=== PATIENT | male | born 1955 | race Caucasian/White ===

== ENCOUNTER 2019-07-09 10:10 | Day surgery (SDC) | payer BC ==
[2019-07-07 10:53] VITALS: BMI 21.7
[~2019-07-09 10:10] MED LIST: LACTATED RINGERS 1,000 ML IV SCH; LIDOCAINE 1% (10MG/ML) FOR IV START INTRADERMA PRN
[2019-07-09 10:34] VITALS: TEMP 98.3
[2019-07-09] MEDS ORDERED: PROPOFOL 10 MG/ML 20 ML VIAL IV ONE (10:44)
[2019-07-09] MEDS ORDERED: LIDOCAINE 1% INJ 10MG/ML (20 ML MDV) ONE (10:44)
--- NOTE | 2019-07-09 11:14 | P.PCN ---
Date of Procedure: 07/09/19 Procedure(s) Performed: BRIEF HISTORY: Patient is a 63-year-old pleasant white male scheduled for an elective colonoscopy as a part of evaluation of change in bowel habits with intermittent rectal bleeding for the last several months duration. No prior history of colonoscopy. PROCEDURE PERFORMED: Colonoscopy with biopsy and snare polypectomy. PREOPERATIVE DIAGNOSIS: Change in bowel habits and rectal bleeding. IV sedation per Anesthesia. PROCEDURE: After informed consent was obtained, the patient, was brought into the endoscopy unit. IV sedation was administered by Anesthesia under continuous monitoring. Digital rectal examination was normal. Initially the Olympus CF-160 flexible video colonoscope was then inserted in the rectum, and immediately there was a ulcerated proximal rectal mass identified with the luminal narrowing. The scope could not be advanced. The scope was removed and a. Colonoscope was then introduced into the rectum and with gentle manipulation it was gradually gradually advanced into the cecum without any difficulty. Careful examination was performed as the scope was gradually being withdrawn. Ileocecal valve and the appendiceal orifice were visualized and appeared normal. Prep was excellent. Mucosa of the cecum, ascending colon normal. The transverse colon there was a 5 mm polyp that was removed by snare polypectomy. Rest of the, transverse colon, descending colon, sigmoid colon, appeared normal. In the proximal rectum there was a circumferential ulcerated mass with luminal narrowing exiting from 9-40 cm from the anal verge and multiple biopsies were done from this area. The distal rectum appeared normal. The patient tolerated the procedure well. IMPRESSION: Circumferential ulcerated proximal rectal mass extending from 9-14 cm from the anal verge status post multiple biopsies 5 mm transverse colon polyp status post polypectomy RECOMMENDATIONS: Findings of this examination were discussed with the patient as well as his family.. He was advised to follow with the biopsies are loose. He'll be scheduled for a CT of the abdomen and pelvis be seen in office next week.
[2019-07-09 11:44] VITALS: RESP 18
[2019-07-09] MEDS ORDERED: MIDAZOLAM 2 MG/2 ML VIAL IVP ONE ×2 (12:21→12:30)
[2019-07-09 12:47] VITALS: BP 153/89; PULSE 51
== END 2019-07-09 12:59 | disposition home or self-care (01) ==
LOC: ORWHC2ENDO 10:10
PROVIDERS: ATTEND Internal Medicine Gastroenterology
DX: C20 Malignant neoplasm of rectum (principal); D12.3 Benign neoplasm of transverse colon; K62.6 Ulcer of anus and rectum; Z87.442 Personal history of urinary calculi
CPT/HCPCS: 88305; 45380; 45385; J2250; J2001; J2704

== ENCOUNTER → 2019-07-12 | Outpatient (CLI) | payer BC ==
--- NOTE | 2019-07-12 19:15 | CT ---
EXAMINATION TYPE: CT abdomen pelvis w con DATE OF EXAM: 07/12/2019 COMPARISON: CT abdomen and pelvis January 16, 2010 HISTORY: Abdominal and pelvic pain, rectal bleeding and diarrhea x2 months. CT DLP: 998 mGycm, Automated Exposure Control for Dose Reduction was Utilized. CONTRAST: CT scan of the abdomen and pelvis is performed with oral and with IV Contrast, patient injected with 100ml mL of Isovue 300. FINDINGS: LUNG BASES: Some increased interstitial prominence bilaterally suspect product of new chronic interst itial [id number]. LIVER/GB: Suspicious new heterogeneous hypodense masses throughout the liver are now present. For ref erence 4.3 cm lesion on long axis right hepatic dome image 13. 2 adjacent lesions left hepatic lobe s een, largest left lateral aspect measures 4.1 cm long axis axial image 17. Interval cholecystectomy c hanges noted. Posterior-inferior right hepatic lobe lesion measures 3.6 cm long axis axial image 32.L esion anterior inferior right hepatic lobe measures 3.8 cm long axis axial image 39. PANCREAS: No significant abnormality is seen. SPLEEN: No significant abnormality is seen. ADRENALS: No significant abnormality is seen. KIDNEYS: There are approximately 10 renal calculi throughout the left kidney measuring up to 9 mm leno g axis axial image 35. There are approximately 2-3 small nonobstructing right renal calculi largest u pper pole level measures 5 to 6 mm long axis coronal image 64. There is symmetric cortical medullary uptake and excretion from both kidneys with scattered simple-appearing thin-walled cysts bilaterally but no hydronephrosis. There is focal cortical scarring laterally mid pole level left kidney coronal image 55. BOWEL: Oral contrast did not reach level terminal ileum making evaluation of bowel slightly suboptima l. Mild prominence of contrast and debris filled stomach. No suspicious small or large bowel dilatati on. There is suspicious moderate to severe concentric mass or neoplasm in the distal right colon just jonnathan rt of the hepatic flexure coronal image 60 and corresponding axial image 49 corresponding to sagittal image 18. Normal-appearing appendix is seen from posterior aspect of cecum in the right upper pelvis inferior to this. There are additional areas of mild to moderate wall thickening in the sigmoid rectal colon with mild to moderate fat stranding of the presacral fat. Findings slightly more suspicious in the distal sigmo id colon and rectum. Suspicious subcentimeter adjacent lymph nodes in the perirectal fat bilaterally. Focal moderate narrowing near junction left and sigmoid colon left upper pelvis coronal image 35 is n onspecific. Favor product of poor distention. PROSTATE/SEMINAL VESICLES: Mildly enlarged bulging on bladder base with central calcifications. Findi ngs consistent with BPH. LYMPH NODES: No greater than 1cm abdominal or pelvic lymph nodes are appreciated. Suspicious subcent imeter perirectal lymph nodes noted. OSSEOUS STRUCTURES: Mild multilevel spurring in the spine. Mild to moderate axial joint space loss in both hips with mild acetabular spurring. Some spurring and narrowing of the sacroiliac joints greate r on the left. OTHER: Fairly moderate to large sized right scrotal fluid collection or hydrocele coronal image 38 ca using mass effect on the right testicle displaced inferiorly. IMPRESSION: There are findings consistent with high grade metastatic colon cancer as there are approx imately 7-8 hepatic metastatic lesions, site of primary colonic neoplasm just past sigmoid rectal lizzy ction involving proximal to mid rectum. Second area of primary colonic neoplasm in the distal right c olon cannot be excluded as detailed above. Additional areas of mild colitis cannot be excluded versus product of poor distention.
== END | disposition home or self-care (01) ==
LOC: RADCTMAIN 15:18
PROVIDERS: ATTEND Internal Medicine Gastroenterology
DX: C19 Malignant neoplasm of rectosigmoid junction (principal); C78.7 Secondary malignant neoplasm of liver and intrahepatic bile duct; K52.9 Noninfective gastroenteritis and colitis, unspecified
CPT/HCPCS: 74177; Q9967

== ENCOUNTER → 2019-07-24 | Outpatient (CLI) | payer BC ==
--- NOTE | 2019-07-27 06:49 | PE ---
EXAMINATION TYPE: PET CT fusion skull to thigh DATE OF EXAM: 07/24/2019 COMPARISON: CT abdomen and pelvis July 12, 2019 and older CTs. HISTORY: Rectal cancer metastatic to liver diagnosed July 18, 2019 on biopsy per patient. TECHNIQUE: Following the intravenous administration of 11.29 mCi of F-18 FDG, whole body images are performed from the skull base to the midthigh. Images are reviewed on the computer in the coronal, a xial, and sagittal planes. Reconstructed rotating images are created on independent workstation and reviewed on the computer. A noncontrast CT is performed in conjunction with the PET scan. SCAN: Initial Scan FINDINGS: SKULL BASE AND NECK: No suspicious areas of hypermetabolic uptake. CHEST, MEDIASTINUM, AND HILAR REGION: No suspicious areas of abnormal hypermetabolic uptake. ABDOMEN AND PELVIS: Normal excretion in the distended bladder. Posterior to bladder there is redemons tration of concentric mass or neoplasm with abnormal hypermetabolic uptake axial images 217 through 2 30, max SUV is 9.4 on axial image 225. No additional suspicious hypermetabolic uptake in the mid to d istal right colon at area of suspicion on recent CT. Nonspecific bilateral testicular uptake presumed nonneoplastic, possibly inflammatory. Corresponding to CT there are hypermetabolic hepatic metastatic lesions. At least 7 distinct lesions are seen. Largest right hepatic dome measures 4.5 x 4.4 cm axial image 121, max SUV is 6.78. Largest lateral segment left hepatic lobe measures 5.3 cm long axis axial image 132, max SUV is 7.04. Posteri or inferior right hepatic lobe 3.3 cm lesion long axis axial image 154 has max SUV of 5.99. No additional areas of suspicious hypermetabolic uptake. OSSEOUS STRUCTURES: No areas of suspicious hypermetabolic uptake. OTHER CT: Mild calcified plaque right carotid bulb level. Metallic plate through healed fracture left clavicle. Background of Mild underlying emphysematous change. Small degree of subareolar gynecomastia. Cholecystectomy clips. Bilateral renal calculi. Enlarged prostate consistent with BPH. Moderate right scrotal fluid collection or hydrocele. Multilevel spurring in the spine. IMPRESSION: Confirmation of known primary rectal neoplasm and hepatic metastatic disease as suspected on recent CT. No additional metastatic disease identified.
== END | disposition home or self-care (01) ==
LOC: RADPETMAIN 10:08
PROVIDERS: ATTEND Internal Medicine Hematology & Oncology
DX: C20 Malignant neoplasm of rectum (principal)
CPT/HCPCS: 78815; A9552

== ENCOUNTER 2019-08-13 06:12 | Inpatient (IN) | payer BC ==
[2019-08-12 09:06] VITALS: BMI 21.7
[~2019-08-13 06:12] MED LIST changes: +HEPARIN SODIUM,PORCINE 5,000 UNIT/ML 1 ML VIAL SQ ONE; -LACTATED RINGERS 1,000 ML IV SCH; -LIDOCAINE 1% (10MG/ML) FOR IV START INTRADERMA PRN; +metroNIDAZOLE-NS PMX 500 MG in SALINE 1 100ML.BAG IVPB ONE
[2019-08-13] MEDS ORDERED: LACTATED RINGERS 1,000 ML IV ONE ×2 (06:48→09:07)
[2019-08-13] MEDS ORDERED: DEXAMETHASONE SOD PHOS (MDV) 100 MG/10 ML VIAL IVP ONE (06:49)
[2019-08-13] MEDS ORDERED: ONDANSETRON 4 MG/2 ML VIAL IVP ONE (06:49)
[2019-08-13] MEDS ORDERED: MIDAZOLAM 2 MG/2 ML VIAL IVP ONE (07:27)
[2019-08-13] MEDS ORDERED: fentaNYL (PF) 50 MCG/ML 2 ML AMP IVP ONE (07:27)
[2019-08-13] MEDS ORDERED: GLYCOPYRROLATE 0.2 MG/ML 2 ML VIAL ONE (07:50)
[2019-08-13] MEDS ORDERED: ePHEDrine SULFATE/0.9% NACL/PF 50 MG/5 ML SYRINGE IV ONE (07:50)
[2019-08-13] MEDS ORDERED: PROPOFOL 10 MG/ML 20 ML VIAL IV ONE (07:50)
[2019-08-13] MEDS ORDERED: MIDAZOLAM 2 MG/2 ML VIAL ONE (07:50)
[2019-08-13] MEDS ORDERED: SUCCINYLCHOLINE CHLORIDE 100 MG/5 ML SYR IV ONE (07:50)
[2019-08-13] MEDS ORDERED: ROPIVACAINE 5 MG/ML 30 ML VIAL ONE (07:50)
[2019-08-13] MEDS ORDERED: ROCURONIUM BROMIDE 10 MG/ML 5 ML VIAL IV ONE (07:50)
[2019-08-13] MEDS ORDERED: fentaNYL (PF) 50 MCG/ML 2 ML AMP ONE (07:50)
[2019-08-13] MEDS ORDERED: NEOSTIGMINE 1 MG/ML 10 ML VIAL ONE (07:50)
--- NOTE | 2019-08-13 08:29 | P.ANPRN ---
Procedure Note - Anesthesia - Nerve Block Performed Bilateral Rectus Abdominis Single Time Out Performed: Yes Date of Procedure: 08/13/19 Procedure Start Time: Procedure Stop Time: Location of Patient: PreOp Indication: Acute Post-Operative Pain, Requested by Surgeon Specifically requested for management of pain by DrMarcelina: Raul Mcclain Sedation Type: Sedate with meaningful contact maintained Preparation: Sterile Prep Position: Supine Catheter: None Needle Types: [place]ajunk Needle Gauge: 20 Ultrasound used to visualize needle placement: Yes Ultrasound used to observe medication spread: Yes Injectate: 0.5% Ropivacaine (see comment for volume) (15 cc each side) Blood Aspirated: No Pain Paresthesia on Injection Noted: No Resistance on Injection: Normal Image Stored and Saved: Yes Events: Uneventful and Well Tolerated
[2019-08-13] MEDS ORDERED: ONDANSETRON 4 MG/2 ML VIAL IVP PRN (09:30)
[2019-08-13] MEDS: HYDROmorphone 0.5 MG/0.5 ML SYRINGE IVP PRN ×5 (09:30→10:38)
--- NOTE | 2019-08-13 09:36 | P.OP ---
Date of Procedure: 08/13/19 Procedure(s) Performed: PREOPERATIVE DIAGNOSIS: Rectosigmoid cancer with obstructive symptoms POSTOPERATIVE DIAGNOSIS: Same PROCEDURE: Exploratory laparotomy with loop colostomy SURGEON: Johny EBL: 20 mL ANESTHESIA: General COMPLICATIONS: None OPERATIVE PROCEDURE: Patient place in the operative table in the supine position. The patient was placed under general anesthesia. The abdomen was prepped and draped in usual sterile fashion. A vertical incision was made extending above and below the umbilicus. The fascia was divided as well. Evaluation of the abdomen revealed palpable masses within the liver as expected. The patient's tumor was present beginning just above the peritoneal reflection extending down into the deeper pelvis. This appeared bulky. This did not appear easily amenable to surgical resection. Instead it was decided to proceed with planned loop colostomy. The descending and sigmoid colon was mobilized by incising the white line of [place]. Once we had adequate mobilization to reach the skin surface a circular incision was made in the left midabdomen. Dissection through this fat and fascia took place using electrocautery. Entrance into the perineal cavity. Using a [place] drain the bowel was able to be brought up to the skin surface without difficulty. The midline fascia was then reapproximated using 2 separate double-stranded #1 PDS sutures. The subcutaneous tissues were closed using 3-0 Vicryl sutures. The skin was then closed using guerrero. Sterile dressings were then applied. The ostomy was then matured in a [place] fashion. This was performed using interrupted 3-0 Vicryl sutures. A bridge was placed and the [place] drain was removed. The bridge was sutured in place using 3-0 silk sutures. An ostomy appliance was then applied. DISPOSITION: Stable to recovery room
[2019-08-13] MEDS: KETOROLAC 30 MG/ML 1 ML VIAL IVP PRN (09:48)
[2019-08-13] MEDS ORDERED: ALVIMOPAN 12 MG CAPSULE PO ONE (10:15)
[2019-08-13] MEDS: D5-0.45% NACL WITH KCL 20MEQ/L 1,000 ML IV SCH ×2 (11:50→21:32)
[2019-08-13] MEDS: HYDROmorphone 1 MG/ML 1 ML SYRINGE IVP PRN ×3 (12:44→21:33)
[2019-08-13] MEDS ORDERED: TEMAZEPAM 15 MG CAP PO PRN (14:47)
[2019-08-13] MEDS ORDERED: ALPRAZolam 0.25 MG TAB PO PRN (14:47)
[2019-08-13] MEDS: NICOTINE 14MG/24HR PATCH TRANSDERM SCH (15:21)
[2019-08-13] MEDS: HEPARIN SODIUM,PORCINE 5,000 UNIT/ML 1 ML VIAL SQ SCH ×2 (15:54→23:41)
--- NOTE | 2019-08-13 18:59 | CONS ---
CONSULTATION DATE OF SERVICE: 08/13/2019 REASON FOR CONSULTATION: Advice regarding colon cancer and other associated multiple medical issues, requested by Dr. Mcclain. HISTORY OF PRESENT ILLNESS: This 63-year-old gentleman with a past medical history of GI bleed, history of nephrolithiasis, history of colon cancer, being followed by Dr. Jose Tompkins in the outpatient setting, underwent exploratory laparotomy as well as loop colostomy for rectosigmoid cancer with obstructive symptoms by Dr. Mcclain. There is no history of any chest pain, no history of palpitations, no history of headache, loss of consciousness, seizures, nausea, vomiting, diarrhea, fever, rigor or chills at this time. PAST MEDICAL HISTORY: History of colon cancer, GI bleed, history of nephrolithiasis. MEDICATIONS: 1. Multivitamins 1 p.o. daily. 2. Cannabinoid CBD extract 1 dose p.r.n. 3. Vitamin C 1000 mg daily. ALLERGIES: NONE. FAMILY HISTORY: No history of heart disease or strokes in the family. SOCIAL HISTORY: History of smoking 5 to 6 cigarettes per day and alcohol, a couple of drinks per day. REVIEW OF SYSTEMS: ENT: No diminished hearing. No diminished vision. CARDIOVASCULAR SYSTEM: No angina, palpitations. RESPIRATORY SYSTEM: Occasional cough. GI: As mentioned earlier. : No dysuria or retention. NERVOUS SYSTEM: No numbness, weakness. ALLERGY/IMMUNOLOGY: No asthma, hayfever. MUSCULOSKELETAL: As mentioned earlier. HEMATOLOGY/ONCOLOGY: No history of anemia. ENDOCRINE: No history of diabetes, hypothyroidism. CONSTITUTIONAL: As mentioned earlier. DERMATOLOGY: Negative. RHEUMATOLOGY: Negative. PSYCHIATRY: As mentioned earlier. PHYSICAL EXAMINATION: Patient alert and oriented x3. Pulse 54, blood pressure 143/84, respiration 16, temperature 97.5, pulse ox 99% on room air. HEENT: Conjunctivae normal. NECK: No jugular venous distention. CARDIOVASCULAR SYSTEM: S1, S2 muffled. RESPIRATORY SYSTEM: Breath sounds diminished at the bases. No rhonchi. No crackles. ABDOMEN: Soft. Status post surgery. LEGS: No edema. No swelling. NERVOUS SYSTEM: No focal deficit. LABS: CBC within normal limits. ASSESSMENT: 1. Status post exploratory laparotomy and loop colostomy for rectosigmoid cancer with obstructive symptoms. 2. History of gastrointestinal bleed. 3. History of nephrolithiasis. 4. History of cholecystectomy. 5. History of degenerative joint disease. 6. History of nicotine dependence. 7. FULL CODE. RECOMMENDATIONS AND DISCUSSION: In this 63-year-old gentleman who presented with multiple medical issues, we will monitor the patient closely, continue the current medications, continue with symptomatic treatment. Incentive spirometry. DVT prophylaxis. We will follow the patient closely with you. The patient may be asked to follow with Dr. Tompkins closely after discharge. Thank you, Dr. Mcclain, for letting us participate in the care of this patient. MMODL / IJN: [id number] /
[2019-08-14] MEDS: HYDROmorphone 1 MG/ML 1 ML SYRINGE IVP PRN ×2 (02:07→05:32)
[2019-08-14] MEDS: D5-0.45% NACL WITH KCL 20MEQ/L 1,000 ML IV SCH ×3 (03:44→19:25)
[2019-08-14] MEDS: KETOROLAC 30 MG/ML 1 ML VIAL IVP PRN ×3 (06:08→22:47)
[2019-08-14 06:30] LABS: Basophils % (A) 0 %; Eosinophils # (A) 0.1 k/uL (0-0.7); Eosinophils % (A) 1 %; HCT 39.3 % (39.0-53.0); Lymphocytes # (A) 2.4 k/uL (1.0-4.8); Lymphocytes % (A) 24 %; MCH 29.5 pg (25.0-35.0); MCV 89.5 fL (80.0-100.0); Mean Platelet Volume 6.6; Monocytes # (A) 0.6 k/uL (0-1.0); Monocytes % (A) 6 %; Neutrophils # (A) 6.7 k/uL (1.3-7.7); Neutrophils % (A) 66 %; Platelet Count 429 k/uL (150-450); RDW 13.3 % (11.5-15.5); WBC 10.1 k/uL (3.8-10.6)
[2019-08-14 06:43] LABS: ALT 75 U/L (4-49); AST 62 U/L (17-59); African American GFR (CKD) >90 (>60 ml/min/1.73 sqM); Albumin 3.3 g/dL (3.5-5.0); Alkaline Phosphatase 70 U/L (38-126); Anion Gap 4 mmol/L; Blood Urea Nitrogen 15 mg/dL (9-20); Carbon Dioxide 25 mmol/L (22-30); Chloride 105 mmol/L (98-107); Glucose 115 mg/dL (74-99); Non-African American GFR(CKD) >90 (>60 ml/min/1.73 sqM); Potassium 4.6 mmol/L (3.5-5.1); Sodium 134 mmol/L (137-145); Total Bilirubin 0.5 mg/dL (0.2-1.3); Total Protein 5.7 g/dL (6.3-8.2)
[2019-08-14] MEDS: ALVIMOPAN 12 MG CAPSULE PO SCH ×2 (08:39→19:26)
[2019-08-14] MEDS: HEPARIN SODIUM,PORCINE 5,000 UNIT/ML 1 ML VIAL SQ SCH ×3 (08:39→22:47)
[2019-08-14] MEDS: NICOTINE 14MG/24HR PATCH TRANSDERM SCH (08:39)
--- NOTE | 2019-08-14 10:23 | P.PN ---
Subjective Progress Note Date: 08/14/19 Principal diagnosis: Obstructing colon cancer Patient doing fairly well today. Pain is controlled. White blood cell count normal at 10.1. Patient afebrile. He is ambulating. No ostomy function. Young catheter removed today. Objective - Vital Signs Vital signs: Vital Signs Temp 98.0 F 08/14/19 04:43 Pulse 63 08/14/19 04:43 Resp 18 08/14/19 04:43 BP 149/78 08/14/19 04:43 Pulse Ox 96 08/14/19 04:43 Intake & Output 08/13/19 08/14/19 08/14/19 18:59 06:59 18:59 Intake Total 2860 1715 Output Total 594 1200 Balance 2266 515 Intake: IV 1450 Intake, IV Titration 750 1125 Amount D5-0.45% NaCl with KCl 750 1125 20Meq/l 1,000 ml @ 125 mls/hr IV .Q8H CARLEY Rx#: [id number] Oral 660 590 Output: Urine 574 1200 Uretheral (Young) 1200 Estimated Blood Loss 20 Other: Voiding Method Indwelling Catheter Indwelling Catheter - Exam Abdomen: Soft, nondistended, dressing clean dry, ostomy pink - Labs CBC & Chem 7: 08/14/19 06:05 08/14/19 06:05 Labs: Abnormal Lab Results - Last 24 Hours (Table) 08/14/19 Range/Units 06:05 Sodium 134 L (137-145) mmol/L Glucose 115 H (74-99) mg/dL AST 62 H (17-59) U/L ALT 75 H (4-49) U/L Total Protein 5.7 L (6.3-8.2) g/dL Albumin 3.3 L (3.5-5.0) g/dL Assessment and Plan (1) Colonic obstruction Narrative/Plan: Continue advancing diet. Ambulate. Possible discharge tomorrow. Current Visit: Yes Status: Acute Code(s): K56.609 - UNSP INTESTNL OBST, UNSP TO PARTIAL VERSUS COMPLETE OBST SNOMED Code(s): 07002852
[2019-08-14] MEDS: HYDROcodone/APAP 5-325MG 1 EACH TAB PO PRN ×2 (11:27→19:30)
[2019-08-14] MEDS ORDERED: TAMSULOSIN 0.4 MG CAP.ER.24H PO SCH (18:30)
--- NOTE | 2019-08-14 18:50 | PN ---
PROGRESS NOTE DATE OF SERVICE: 08/14/2019 This 63-year-old gentleman who was admitted after exploratory laparotomy and colostomy reversal is being closely monitored. Patient also had urinary retention symptoms. The patient is being closely monitored. Dr. Mcclain is following the patient closely. The patient is on full liquids at this time. PAST MEDICAL HISTORY: Reviewed. REVIEW OF SYSTEMS: CARDIOVASCULAR SYSTEM: No angina or palpitations. RESPIRATION: As mentioned earlier. GI mentioned earlier. no dysuria or hematuria. NERVOUS SYSTEM: No numbness or weakness. CURRENT MEDICATIONS: Reviewed and include: 1. [place] 5 mg q.4 p.r.n. 2. Xanax 0.5 t.i.d. 3. Entereg. 4. Heparin 5000 subcu q.8h. 5. Dilaudid. 6. Toradol. 7. Actos. 8. Zofran. 9. Flomax. 10.Restoril. PHYSICAL EXAM: Patient is alert, oriented x3. Pulse 66, blood pressure 164/86, respirations 16, temperature 98.5, pulse ox 98% on room air. HEENT: Conjunctivae normal. NECK: No JVD. CARDIOVASCULAR: S1, S2 muffled. RESPIRATORY SYSTEM: Breath sounds diminished at the bases. Scattered rhonchi and crackles. ABDOMEN: Soft, nontender. LEGS are no edema. No swelling. NERVOUS SYSTEM: No focal deficits. LABS: Sodium 134, AST is 62, ALT 75, albumin is 3.3. ASSESSMENT: 1. Status post exploratory laparotomy with loop colostomy for rectosigmoid cancer with obstructive symptoms. 2. History of gastrointestinal bleed. 3. Urinary obstruction, possible benign prostatic hypertrophy. 4. History of nephrolithiasis. 5. History of cholecystectomy. 6. Elevated AST/ALT. 7. Mild hyponatremia. 8. History of cholecystectomy. 9. History of degenerative joint disease. 10.History of nicotine dependence. 11.FULL CODE. RECOMMENDATIONS AND DISCUSSION: Recommend to continue current medications, monitoring and symptomatic treatment. Otherwise at this time, recommend Flomax. Straight cath. Closely follow with surgery. DVT prophylaxis. Incentive spirometry. Closely follow. Further recommendations to follow. MMODL / IJN: [id number] /
[2019-08-15] MEDS: D5-0.45% NACL WITH KCL 20MEQ/L 1,000 ML IV SCH ×2 (01:42→10:07)
[2019-08-15] MEDS: ALVIMOPAN 12 MG CAPSULE PO SCH (08:24)
[2019-08-15] MEDS: HEPARIN SODIUM,PORCINE 5,000 UNIT/ML 1 ML VIAL SQ SCH (08:24)
[2019-08-15] MEDS: NICOTINE 14MG/24HR PATCH TRANSDERM SCH (08:25)
--- NOTE | 2019-08-15 11:22 | P.DS ---
Providers Date of admission: 08/13/19 06:12 Expected date of discharge: 08/15/19 Attending physician: Raul Mcclain Consults: 08/13/19 09:30 Consult Physician Routine Consulting Provider: Kati Patterson Consult Reason/Comments: Medical management Do you want consulting provider notified?: Yes Primary care physician: Jose Tompkins - Discharge Diagnosis(es) (1) Colonic obstruction Patient doing well today. Passing flatus through ostomy. Denies pain at all at this point. No nausea or vomiting. He would like to go home today. Patient was admitted on Friday and underwent diverting loop colostomy. He had his colostomy teaching yesterday. He is anxious for discharge. Will plan discharge once home care arranged. No prescription narcotics at home. Follow-up one week. Current Visit: Yes Status: Acute Plan - Discharge Summary Discharge Rx Participant: Yes New Discharge Prescriptions: No Action Multivitamins, Thera [Multivitamin (formulary)] 1 tab PO DAILY Ascorbic Acid [Vitamin C] 1,000 mg PO DAILY Cannabidiol (Cbd) Extract [Epidiolex] 1 dose PO DAILY PRN PRN Reason: Pain Discharge Medication List Ascorbic Acid [Vitamin C] 1,000 mg PO DAILY 07/07/19 [History] Cannabidiol (Cbd) Extract [Epidiolex] 1 dose PO DAILY PRN 07/07/19 [History] Multivitamins, Thera [Multivitamin (formulary)] 1 tab PO DAILY 07/07/19 [History] Follow up Appointment(s)/Referral(s): [facility], [NON-STAFF] - 1-2 Days Raul Mcclain MD [Medical Doctor] - 1 Week Patient Instructions/Handouts: Tamsulosin (By mouth), Colostomy Care (GEN) Activity/Diet/Wound Care/Special Instructions: Colostomy Care instructions and Recommendations for home: Entire pouching system changed on 08.14.2019 Ostomy supplies being sent home with Mr Diaz as follows from [facility]: Convatec One piece cut to fit with filter #[id number] (4 pouches) Apply the pouch over the top of the bridge on both sides of the loop colostomy stoma No Sting prep pads 20 from the hospital Osotmy powder (1) only utilized if the skin around the bowel is reddened or broken down Two piece convatec pouching system: Flanges (moldable) #[id number] (3) from the hospital Pouches Convatec with filter drainable #[id number] (3) from the hospital Mr Diaz is to drain the pouch in the bathroom when the bag is 1/3 to 1/2 full and clean the end of the bag with toilet tissue Do not use wipe onthe end of the bag This may cause the velcro to not seal Mr Diaz is to change the entire pouching system wvery 3-5 days unless otherwise directed by the Home Nurse or Dr Rothman Mr Diaz will be receiving additional sample supplies from [employer] for home use in 5-7 days to his home Home Health please assist Mr Diaz in 4-6 weeks with a permanent Script for his ostomy supplies
[2019-08-15 11:55] VITALS: BP 139/81; PULSE 61; RESP 17; TEMP 98.7
--- NOTE | 2019-08-15 21:07 | PN ---
PROGRESS NOTE DATE OF SERVICE: 08/15/2019 This 63-year-old gentleman who was admitted with exploratory laparotomy, is improving significantly. No chest pain. No palpitations. No fever. PHYSICAL EXAMINATION: Alert and oriented x3. Pulse is 73. Blood pressure 131/71, respiration 18, temperature 98.8, pulse ox 97% on room air. HEENT: Conjunctivae normal. NECK: No JVD. CARDIOVASCULAR: S1, S2 muffled. RESPIRATION: Breath sounds diminished in the bases. Scattered rhonchi and crackles. ABDOMEN is soft status post surgery. LEGS are no edema. No swelling. CENTRAL NERVOUS SYSTEM: No focal deficits. LABS: Noted. ASSESSMENT: 1. Status post exploratory laparotomy and loop colostomy for rectosigmoid cancer with obstructive symptoms. 2. History of gastrointestinal bleed. 3. Urinary obstruction, possible benign prostatic hypertrophy. 4. History of nephrolithiasis. 5. History of cholecystectomy. 6. Elevated AST/ALT. 7. Mild hyponatremia. 8. History of cholecystectomy. 9. History of degenerative joint disease. 10.History of nicotine dependence. 11.FULL CODE. RECOMMENDATIONS AND DISCUSSION: Recommend to continue current medications. Continue with monitoring, symptomatic treatment. Continue the current management and symptomatic treatment. Resume the home medications. Closely follow with primary physician in the outpatient setting. The rest of the recommendations per surgery. Further recommendations to follow. MMODL / IJN: [id number] /
== END 2019-08-15 13:10 | disposition home health service (06) | DRG 330 ==
LOC: 2ORMAIN 06:12 → 5NMEDONC 09:33
PROVIDERS: ADMIT Surgery; ATTEND Surgery
PROC: 0D1N0Z4 Bypass Sigmoid Colon to Cutaneous, Open Approach (ICD-10-PCS; principal; 2019-08-13 07:45)
DX: C19 Malignant neoplasm of rectosigmoid junction (principal); C78.7 Secondary malignant neoplasm of liver and intrahepatic bile duct; E87.1 Hypo-osmolality and hyponatremia; N13.8 Other obstructive and reflux uropathy; N40.1 Benign prostatic hyperplasia with lower urinary tract symptoms; M19.90 Unspecified osteoarthritis, unspecified site; R74.0 Nonspecific elevation of levels of transaminase and lactic acid dehydrogenase [LDH]; F17.210 Nicotine dependence, cigarettes, uncomplicated; Z87.442 Personal history of urinary calculi; Z90.49 Acquired absence of other specified parts of digestive tract; Z80.41 Family history of malignant neoplasm of ovary; Z80.42 Family history of malignant neoplasm of prostate
CPT/HCPCS: 64488; 80053; 85025; 86850; 86900; 86901; 93005

== ENCOUNTER → 2019-10-20 | Outpatient (CLI) | payer BC ==
--- NOTE | 2019-10-20 14:08 | CT ---
EXAMINATION TYPE: CT ChestAbdPelvis w con DATE OF EXAM: 10/20/2019 COMPARISON: PET CT July 24, 2019 HISTORY: Rectal cancer, observe for mets. CT DLP: 758.4 mGycm. Automated Exposure Control for Dose Reduction was Utilized. CONTRAST: CT scan of the thorax, abdomen and pelvis is performed with oral and with IV Contrast, patient inject ed with 100ml mL of Isovue 300. FINDINGS: LUNGS: Patchy dependent atelectasis and bibasilar linear atelectasis. No suspicious new nodules or ma sses. No pleural effusion or pneumothorax seen bilaterally. MEDIASTINUM: There are no new greater than 1 cm hilar or mediastinal lymph nodes. Some prominent but subcentimeter lymph nodes redemonstrated for reference subcarinal lymph node on axial image 26 No c ardiomegaly or pericardial effusion is seen. OTHER: Bilateral subareolar gynecomastia redemonstrated. LIVER/GB: Persistent hepatic metastatic disease with anterior right hepatic dome hypodense lesion shlomo suring 3.8 cm long axis on current study image 45 versus 4.5 prior PET/CT. Lateral segment left hepa tic lobe lesion measured 4.4 cm long axis current study axial image 50 versus 5.3 cm prior study. Inf erior right hepatic lobe lesion measures 2.7 cm long axis current study axial image 64 versus 3.3 cm prior study.. Smaller masses are noted less well seen on CT was PET/CT No definitive new intrahepatic masses. Cholecystectomy clips are redemonstrated.1 PANCREAS: No significant abnormality is seen. SPLEEN: No significant abnormality is seen. ADRENALS: No significant abnormality is seen. KIDNEYS: There are scattered simple appearing thin-walled cysts along with areas of cortical volume l oss and calculi bilaterally in both kidneys redemonstrated. Stable exophytic 1 cm hemorrhagic or prot einaceous cyst lower pole of the right kidney axial image 79. BOWEL: Oral contrast does not reach level of terminal ileum making evaluation of distal bowel subopti mal. There is no suspicious small or large bowel dilatation. There is new left sided colostomy. Remna nt rectosigmoid colon with suspected residual mass or neoplasm seen best coronal image 67 with apple core moderate irregular wall thickening and luminal narrowing. GENITAL ORGANS: Upper limits of normal in size with central calcifications. LYMPH NODES: No greater than 1cm abdominal or pelvic lymph nodes are appreciated. OSSEOUS STRUCTURES: No significant abnormality is seen. OTHER: No significant additional abnormality is seen. IMPRESSION: Partial positive treatment response with some decreased in size of known hepatic metastat ic disease. Stable appearance of known rectal mass or neoplasm. Interval colostomy. No new suspiciou s mass or adenopathy identified.
== END | disposition home or self-care (01) ==
LOC: RADCTMAIN 11:49
PROVIDERS: ATTEND Internal Medicine Hematology & Oncology
DX: C78.7 Secondary malignant neoplasm of liver and intrahepatic bile duct (principal); Z93.3 Colostomy status; C20 Malignant neoplasm of rectum
CPT/HCPCS: 82565; 84520; 71260; 74177; 36415; Q9967

== ENCOUNTER → 2020-03-10 | Outpatient (CLI) | payer BC ==
--- NOTE | 2020-03-13 08:54 | PE ---
EXAMINATION TYPE: PET CT fusion skull to thigh DATE OF EXAM: 03/10/2020 COMPARISON: Prior PET/CT July 24, 2019. Most recent CT October 20, 2019 HISTORY: Stage IV colorectal cancer with liver metastases diagnosed July 2019. Completed chemotherap y February 24, 2020. TECHNIQUE: Following the intravenous administration of 13.78 mCi of F-18 FDG, whole body images are performed from the skull base to the midthigh. Images are reviewed on the computer in the coronal, a xial, and sagittal planes. Reconstructed rotating images are created on independent workstation and reviewed on the computer. A localization and attenuation correction CT is performed in conjunction with the PET scan. SCAN: Subsequent Scan FINDINGS: SKULL BASE AND NECK: No new areas of abnormal hypermetabolic uptake. CHEST, MEDIASTINUM, AND HILAR REGION: No new areas of abnormal hypermetabolic uptake.33 ABDOMEN AND PELVIS: Marked interval improvement in hepatic metastatic disease. No residual hypermetab olic lesions are present. Residual lesion anterior right hepatic dome has increased central hyperdensity possible calcium measu res 2.7 cm long axis axial image 124 versus 4.5 cm prior PET/CT.Vague lesion lateral left hepatic lob e less well seen on current noncontrast CT. There is residual 1.6 cm lesion hypodense with central ca lcification anterior right hepatic lobe axial image 165. Other lesions on prior PET/CT less well-seen on current nonenhanced CT. No new areas of suspicious hypermetabolic uptake. Interval diverting colostomy noted. No residual hyp ermetabolic uptake in the sigmoid rectal colon with marked improvement in abnormal wall thickening. OSSEOUS STRUCTURES: No new areas of suspicious hypermetabolic uptake. OTHER CT: Minimal calcified plaque right carotid bulb level redemonstrated. Metallic plate through healed fracture left clavicle redemonstrated. No right internal jugular Medipo rt catheter terminating in SVC. Background of Mild underlying emphysematous change. Persistent bilateral gynecomastia. Cholecystectomy clips. Bilateral nonobstructing renal calculi. Enlarged prostate consistent with BPH redemonstrated. Persistent Moderate right scrotal fluid collection or hydrocele. Multilevel spurring in the spine. IMPRESSION: Complete positive treatment response. No areas of residual abnormal hypermetabolic uptake .
== END | disposition home or self-care (01) ==
LOC: RADPETMAIN 15:55
PROVIDERS: ATTEND Internal Medicine Hematology & Oncology
DX: C20 Malignant neoplasm of rectum (principal); Z92.21 Personal history of antineoplastic chemotherapy
CPT/HCPCS: 78815; A9552

== ENCOUNTER 2020-03-28 09:27 | Day surgery (SDC) | payer BC ==
[2020-03-23 16:03] VITALS: BMI 22.3
[~2020-03-28 09:27] MED LIST changes: -HEPARIN SODIUM,PORCINE 5,000 UNIT/ML 1 ML VIAL SQ ONE; +LACTATED RINGERS 1,000 ML IV SCH; +LIDOCAINE 1% (10MG/ML) FOR IV START INTRADERMA PRN; -metroNIDAZOLE-NS PMX 500 MG in SALINE 1 100ML.BAG IVPB ONE
[2020-03-28 09:54] VITALS: RESP 16; TEMP 97.8
[2020-03-28] MEDS ORDERED: LIDOCAINE 1% INJ 10MG/ML (20 ML MDV) ONE (10:22)
[2020-03-28] MEDS ORDERED: PROPOFOL 10 MG/ML 20 ML VIAL IV ONE (10:22)
--- NOTE | 2020-03-28 10:27 | P.GSHP ---
History of Present Illness H&P Date: 03/28/20 Chief Complaint: Rectal cancer 64-year-old male known to our service. Patient was diagnosed with rectal cancer earlier this year. Tumor extended from 9-14 cm. Patient underwent diverting colostomy. Patient was found to have metastatic disease. He underwent palliative chemotherapy with excellent response. Recent PET scan shows no residual activity. Patient has had complaints of a stomal prolapse. Interested in either repair of the stomal prolapse or ostomy reversal. Here today for flexible sigmoidoscopy to evaluate the rectum. Patient had bulky tumor at the time of his loop colostomy placement. Past Medical History Past Medical History: Cancer Additional Past Medical History / Comment(s): kidney stones. COLOSTOMY. colon cancer-received chemo History of Any Multi-Drug Resistant Organisms: None Reported Past Surgical History: Bowel Resection, Cholecystectomy, Orthopedic Surgery Additional Past Surgical History / Comment(s): repair lt shoulder, collar bone with plate, colonoscopy. port a cath rt chest wall, bowel resection with colostomy Past Anesthesia/Blood Transfusion Reactions: No Reported Reaction Smoking Status: Current every day smoker - Past Family History Mother Family Medical History: Cancer Additional Family Medical History / Comment(s): OVARIAN CANCER Medications and Allergies Home Medications Medication Instructions Recorded Confirmed Type Cannabidiol (Cbd) [Epidiolex] 1 dose PO DAILY PRN 07/07/19 03/28/20 History Multivitamins, Thera [Multivitamin 1 tab PO DAILY 07/07/19 03/28/20 History (formulary)] Allergies Allergy/AdvReac Type Severity Reaction Status Date / Time No Known Allergies Allergy Verified 03/23/20 15:32 Surgical - Exam Vital Signs Temp Pulse Resp BP Pulse Ox 97.8 F 67 16 152/82 99 03/28/20 09:52 03/28/20 09:52 03/28/20 09:52 03/28/20 09:52 03/28/20 09:52 Physical exam: General: Well-developed, well-nourished HEENT: Normocephalic, sclerae nonicteric Abdomen: Nontender, nondistended Extremities: No edema Neuro: Alert and oriented Assessment and Plan (1) Rectal cancer Narrative/Plan: Will proceed with colonoscopy Current Visit: Yes Status: Acute Code(s): C20 - MALIGNANT NEOPLASM OF RECTUM SNOMED Code(s): 499868136
--- NOTE | 2020-03-28 10:40 | P.PCN ---
Date of Procedure: 03/28/20 Procedure(s) Performed: PREOPERATIVE DIAGNOSIS: Rectal cancer, stomal prolapse POSTOPERATIVE DIAGNOSIS: Residual obstructing mass mid to distal rectum PROCEDURE: Flexible proctoscopy with biopsy ANESTHESIA: MAC SURGEON: Raul Mcclain M.D. SPECIMENS: Rectal mass ENDOSCOPIC PROCEDURE: The patient was placed on the endoscopy table in the left decubitus position. The Olympus colonoscope was inserted into the anus and passed under direct visualization to the mid rectum where the previously identified rectal cancer was present. There was a circumferential firm friable mass present. We were unable to advance the scope through the lumen. Biopsies of the residual mass took place. On digital rectal examination this was present at about 7-8 cm and felt somewhat fixed by palpation. The patient was taken to the recovery room in stable condition per anesthesia guidelines. RECOMMENDATIONS: Endoscopic findings will be discussed with the patient. Repair stomal prolapse versus ostomy reversal options will again be discussed with the patient. Given the endoscopic findings favor local repair of the prolapse.
[2020-03-28 10:56] VITALS: BP 112/74; PULSE 55
== END 2020-03-28 11:46 | disposition home or self-care (01) ==
LOC: ORWHC2ENDO 09:27
PROVIDERS: ATTEND Surgery
DX: C20 Malignant neoplasm of rectum (principal); Z93.3 Colostomy status; Z92.21 Personal history of antineoplastic chemotherapy; Z90.49 Acquired absence of other specified parts of digestive tract; Z95.828 Presence of other vascular implants and grafts; Z98.890 Other specified postprocedural states; F17.210 Nicotine dependence, cigarettes, uncomplicated; Z87.442 Personal history of urinary calculi; Z80.41 Family history of malignant neoplasm of ovary; Z80.42 Family history of malignant neoplasm of prostate
CPT/HCPCS: 88305; 45331; J2001; J2704

== ENCOUNTER 2020-04-07 09:14 | Inpatient (IN) | payer BC ==
[2020-04-04 13:53] VITALS: BMI 22.3
[~2020-04-07 09:14] MED LIST changes: +ACETAMINOPHEN TAB 500 MG TAB PO PRN; +DEXAMETHASONE SOD PHOSPHATE 4 MG/ML 1 ML VIAL IV ONE; +HEPARIN SODIUM,PORCINE 5,000 UNIT/ML 1 ML VIAL SQ PRN; +metroNIDAZOLE-NS PMX 500 MG in SALINE 1 100ML.BAG IVPB PRN
[2020-04-07] MEDS ORDERED: ONDANSETRON 4 MG/2 ML VIAL ONE (09:57)
[2020-04-07 10:38] LABS: Basophils # (A) 0.1 k/uL (0-0.2); Basophils % (A) 1 %; Eosinophils # (A) 0.2 k/uL (0-0.7); Eosinophils % (A) 3 %; HCT 43.2 % (39.0-53.0); HGB 14.5 gm/dL (13.0-17.5); Lymphocytes # (A) 2.2 k/uL (1.0-4.8); Lymphocytes % (A) 28 %; MCH 32.5 pg (25.0-35.0); MCHC 33.5 g/dL (31.0-37.0); Mean Platelet Volume 6.5; Monocytes # (A) 0.4 k/uL (0-1.0); Monocytes % (A) 5 %; Neutrophils # (A) 4.7 k/uL (1.3-7.7); Neutrophils % (A) 61 %; Platelet Count 355 k/uL (150-450); RBC 4.45 m/uL (4.30-5.90); RDW 14.4 % (11.5-15.5); WBC 7.7 k/uL (3.8-10.6)
--- NOTE | 2020-04-07 11:24 | P.GSHP ---
History of Present Illness H&P Date: 04/07/20 Chief Complaint: stomal prolapse 64-year-old male known to our service. Patient here today for revision of his loop colostomy where he has developed a stomal prolapse of the proximal limb. Some pain there. Underwent recent flexible sigmoidoscopy which showed a residual large mass in the rectum. Biopsies did not show invasive malignancy however residual malignancy suspected to some degree. Discussed options of attempts at low anterior resection and decided for now to proceed with revision of his stoma without laparotomy or attempts at colostomy reversal. Past Medical History Past Medical History: Cancer Additional Past Medical History / Comment(s): kidney stones. COLOSTOMY. colon cancer-received chemo History of Any Multi-Drug Resistant Organisms: None Reported Past Surgical History: Bowel Resection, Cholecystectomy, Orthopedic Surgery Additional Past Surgical History / Comment(s): repair lt shoulder, collar bone with plate, colonoscopy. port a cath rt chest wall, bowel resection with colostomy Past Anesthesia/Blood Transfusion Reactions: No Reported Reaction Smoking Status: Current every day smoker - Past Family History Mother Family Medical History: Cancer Additional Family Medical History / Comment(s): OVARIAN CANCER Medications and Allergies Home Medications Medication Instructions Recorded Confirmed Type Cannabidiol (Cbd) [Epidiolex] 1 dose PO DAILY PRN 07/07/19 04/07/20 History Multivitamins, Thera [Multivitamin 1 tab PO DAILY 07/07/19 04/07/20 History (formulary)] Allergies Allergy/AdvReac Type Severity Reaction Status Date / Time No Known Allergies Allergy Verified 04/07/20 10:06 Surgical - Exam Vital Signs Temp Pulse Resp BP Pulse Ox 97.6 F 61 18 163/96 99 04/07/20 10:40 04/07/20 10:40 04/07/20 10:40 04/07/20 10:40 04/07/20 10:40 Physical exam: General: Well-developed, well-nourished HEENT: Normocephalic, sclerae nonicteric Abdomen: Nontender, nondistended, prolapse stoma left midabdomen Extremities: No edema Neuro: Alert and oriented Results - Labs 04/07/20 10:20 Assessment and Plan (1) Stomal prolapse Narrative/Plan: Will proceed with revision loop colostomy and correction of stomal prolapse. Risks of bleeding, infection, recurrent prolapse, hernia, covid infection reviewed with patient. He understands and wishes to proceed. Current Visit: Yes Status: Acute Code(s): [id number] - SNOMED Code(s): 997792163
[2020-04-07] MEDS ORDERED: fentaNYL (PF) 50 MCG/ML 2 ML AMP ONE (11:25)
[2020-04-07] MEDS ORDERED: GLYCOPYRROLATE 0.2 MG/ML 2 ML VIAL ONE (11:25)
[2020-04-07] MEDS ORDERED: LIDOCAINE 1% INJ 10MG/ML (20 ML MDV) ONE (11:25)
[2020-04-07] MEDS ORDERED: NEOSTIGMINE 1 MG/ML 10 ML VIAL ONE (11:25)
[2020-04-07] MEDS ORDERED: ROCURONIUM 10 MG/ML (10 ML VIAL) IV ONE (11:25)
[2020-04-07] MEDS ORDERED: PROPOFOL 10 MG/ML 20 ML VIAL IV ONE (11:25)
[2020-04-07] MEDS ORDERED: MIDAZOLAM 2 MG/2 ML VIAL ONE (11:25)
[2020-04-07] MEDS ORDERED: SUCCINYLCHOLINE CHLORIDE 100 MG/5 ML SYR IV ONE (11:25)
[2020-04-07] MEDS ORDERED: LACTATED RINGERS 1,000 ML IV ONE (12:41)
[2020-04-07] MEDS ORDERED: HYDROmorphone 0.5 MG/0.5 ML SYRINGE IVP PRN (12:55)
[2020-04-07] MEDS ORDERED: HYDROcodone/APAP 5-325MG 1 EACH TAB PO PRN (12:55)
[2020-04-07] MEDS ORDERED: ACETAMINOPHEN TAB 325 MG TAB PO PRN (12:55)
[2020-04-07] MEDS ORDERED: NALOXONE 0.4 MG/ML 1 ML VIAL IV PRN (12:55)
--- NOTE | 2020-04-07 12:59 | P.OP ---
Date of Procedure: 04/07/20 Procedure(s) Performed: PREOPERATIVE DIAGNOSIS: Stomal prolapse POSTOPERATIVE DIAGNOSIS: Same PROCEDURE: Ostomy revision with partial colectomy SURGEON: Johny EBL: 20 mL ANESTHESIA: Gen. COMPLICATIONS: None OPERATIVE PROCEDURE: She placed in the operative table. He was then placed under general anesthesia. 2-0 Vicryl pursestring suture used at the stoma. A circular incision made around the stoma excising a small portion of skin with the loop colostomy. Subcutaneous tissues were divided using electrocautery, LigaSure, and blunt dissection. The distal limb of the loop colostomy was divided using a linear 75 stapler. The mesentery was divided using the LigaSure device. Proximally we were able to pull the descending colon until there was no redundancy within the abdomen. 3-0 GI silk sutures were used to tether the limbs of the colon and the mesentery to the adjacent fascia to help prevent fu ture hernia. The distal portion of the colostomy was first matured. Approximately one half of the staple line was excised using cautery. This was sutured to the 6:00 location of the colostomy using interrupted 3-0 Vicryl sutures. The proximal limb was then addressed. The bowel was divided using electrocautery. This was then matured in a afognak fashion using interrupted 3- 0 Vicryl sutures. No bleeding was seen. A new colostomy appliance was applied. DISPOSITION: Stable to recovery room
[2020-04-07 13:04] VITALS: RESP 16; TEMP 97.7
[2020-04-07] MEDS ORDERED: HYDROmorphone 0.5 MG/0.5 ML SYRINGE IVP ONE ×2 (13:13→13:18)
[2020-04-07 13:49] VITALS: PULSE 60
[2020-04-07 13:57] VITALS: BP 152/81
== END 2020-04-07 14:55 | disposition home or self-care (01) | DRG 330 ==
LOC: 2ORMAIN 09:26 → 5NMEDONC 14:21 → 2ORMAIN 14:21
PROVIDERS: ADMIT Surgery; ATTEND Surgery
PROC: 0DBN0ZZ Excision of Sigmoid Colon, Open Approach (ICD-10-PCS; principal; 2020-04-07 11:00)
DX: K94.09 Other complications of colostomy (principal); C20 Malignant neoplasm of rectum; F17.200 Nicotine dependence, unspecified, uncomplicated; Z87.442 Personal history of urinary calculi; Z90.49 Acquired absence of other specified parts of digestive tract; Z98.890 Other specified postprocedural states; Z80.41 Family history of malignant neoplasm of ovary
CPT/HCPCS: 85025; 88304

== ENCOUNTER → 2020-07-25 | Outpatient (CLI) | payer BC ==
--- NOTE | 2020-07-25 13:12 | CT ---
EXAMINATION TYPE: CT ChestAbdPelvis w con DATE OF EXAM: 07/25/2020 COMPARISON: Prior PET/CT March 10, 2020 and older studies HISTORY: follow up rectal cancer with liver metastases. CT DLP: 1464 mGycm. Automated Exposure Control for Dose Reduction was Utilized. CONTRAST: CT scan of the thorax, abdomen and pelvis is performed with IV Contrast, patient injected with 100 mL of Isovue 300. FINDINGS: LUNGS: The lungs remain grossly clear, there is no concerning new parenchymal mass or nodule identifi ed. There is no pleural effusion or pneumothorax seen. The tracheobronchial tree is patent. MEDIASTINUM: There is borderline enlarged right paratracheal lymph node axial image 17 not significan tly changed from prior [address] studies. No new greater than 1 cm thoracic adenopathy. No cardiomeg john or pericardial effusion is seen. OTHER: Bilateral subareolar gynecomastia is redemonstrated. Stable right internal jugular Mediport ca theter. LIVER/GB: Centrally stable 3.0 cm heterogeneous hypodense lesion axial image 45 anterior right hepati c dome from most recent study. Background diffuse fatty infiltration of liver. Stable 1.8 cm low dens e lesion posterior right hepatic lobe axial image 63. Roughly 2.8 cm hypodense lesion right hepatic l obe lesion axial image 59 slightly more prominent from prior study. Vague 1.0 cm lesion there are kate gical clips axial image 63 is nonspecific. Stable 2.2 cm hypodense lesion anteriorly axial image 71. PANCREAS: No significant abnormality is seen. SPLEEN: No significant abnormality is seen. ADRENALS: No significant abnormality is seen. KIDNEYS: Multifocal nonobstructing left renal calculi with areas of cortical volume loss. Symmetric c ortical medullary uptake and excretion without hydronephrosis seen bilaterally. A few scattered simpl e-appearing thin-walled cysts throughout the right kidney. BOWEL: Oral contrast does not reach level of cecum on current study making evaluation distal bowel sl ightly suboptimal. Persistent left-sided ostomy. Remnant rectal pouch extends to site of ostomy. GENITAL ORGANS: Enlarged prostate consistent with BPH. LYMPH NODES: No greater than 1cm abdominal or pelvic lymph nodes are appreciated. OSSEOUS STRUCTURES: [id number] multilevel spurring in the spine. Facet arthropathy lower lumbar levels. OTHER: Mild calcified plaque distal abdominal aorta extends into branch vessels. Persistent at least moderate right scrotal fluid collection or hydrocele is partially imaged. IMPRESSION: Known hepatic metastatic disease redemonstrated. Some lesions stable from most recent CT and PET/CT. A few lesion slightly more prominent from most recent CT less well seen on most recent PE T/CT. Malignancy progression at this level cannot be entirely excluded. Otherwise no new suspicious o r enlarging mass or adenopathy to suggest active neoplastic progression.
== END ==
LOC: RADCTMAIN 10:27
PROVIDERS: ATTEND Internal Medicine Hematology & Oncology
DX: C20 Malignant neoplasm of rectum (principal); C78.7 Secondary malignant neoplasm of liver and intrahepatic bile duct
CPT/HCPCS: 71260; 74177; Q9967

== ENCOUNTER → 2020-12-01 | Outpatient (CLI) | payer BC ==
--- NOTE | 2020-12-01 17:18 | CT ---
EXAMINATION TYPE: CT ChestAbdPelvis w con DATE OF EXAM: 12/01/2020 COMPARISON: 07/25/2020 HISTORY: h/o colon ca obs for mets CT DLP: 845.5 mGycm Automated exposure control for dose reduction was used. CONTRAST: CT scan of the chest, abdomen and pelvis is performed with Oral Contrast and with IV Contrast, patien t injected with 100 mL of Isovue 300. FINDINGS: LUNGS: There is a 2 mm peripheral right upper lobe pulmonary nodule retrospectively stable from the p rior exam. Subsegmental changes are seen most typical of atelectasis. Pleural-based thickening along the left lateral chest likely is postinflammatory. There is additional 2 mm nodule superior segment r ight lower lobe also stable from prior exam. MEDIASTINUM: There are no greater than 1 cm hilar or mediastinal lymph nodes. No pericardial effusi on is seen. OTHER: No additional significant abnormality is seen. LIVER/GB: Hepatic dome lesion measures 3.5 cm and previously measured 3.1 cm. Anterior segment left hepatic lobe lesion measures 1.5 cm previously measured 1 cm. Right lobe hepatic lesion measures 3.5 x 2.7 cm previously measured 2.8 cm in greatest axis. Posterior segment right lobe hepatic lesion measures 2.5 cm and previously measured 1.8 cm. Additional right lobe hepatic anterior lesion measures 1.9 cm and previously measured 1.5 cm. PANCREAS: No significant abnormality is seen. SPLEEN: No significant abnormality is seen. ADRENALS: No significant abnormality is seen. KIDNEYS: Simple bilateral renal cysts are noted. No hydronephrosis. Multiple left renal calculi are n oted. Cortical loss compatible with chronic medical renal disease. BOWEL: Left-sided ostomy is noted with parastomal hernia noted. No evidence of obstruction. Fullness to the right colon near the cecum likely related to retained fecal debris throughout the colon. Henrique elate clinically. LYMPH NODES: No greater than 1 cm abdominal or pelvic lymph nodes are appreciated. Short axis measure ment 7 mm node in the right posterior hemipelvis is stable. No definite pathologic adenopathy by size criteria. OSSEOUS STRUCTURES: Bilevel degenerative disc disease. Hypertrophic arthropathy of the SI joints. Mul tilevel facet arthropathy. OTHER: Aorta of normal caliber. Prostate gland is prominent size. IMPRESSION: 1. Multiple hepatic lesions have demonstrated interval incremental increase in size compatible with d isease progression as measured above. 2. Stable sub-5 mm pulmonary nodules likely benign. 3. Simple renal cysts with nonobstructing left-sided renal calculi
== END | disposition home or self-care (01) ==
LOC: RADCTMAIN 14:52
PROVIDERS: ATTEND Internal Medicine Hematology & Oncology
DX: N28.1 Cyst of kidney, acquired (principal); N20.0 Calculus of kidney; Z85.038 Personal history of other malignant neoplasm of large intestine
CPT/HCPCS: 71260; 74177; Q9967